=== PATIENT | male | born 1960 | race Caucasian/White ===

== ENCOUNTER 2018-05-22 13:47 | Observation (INO) | payer OTHER ==
[~2018-05-22] VITALS: Ht 188 cm; Wt 99.8 kg
[~2018-05-22 13:47] MED LIST: CEPH500 PO; RXSULTRIDS PO; SULTRIDS PO
[2018-05-22] MEDS ORDERED: Ranitidine HCl150 M1 PO (13:56)
--- NOTE | 2018-05-22 15:39 | NUR ---
1500 PT TO SDS FROM ED, IV ABX INFUSING, C/O ABD PAIN SINCE YESTERDAY. NPO SINCE YESTERDAY. V/U OF SURGICAL INTERVENTION-APPY. RECENTLY MEDICATED FOR PAIN IN ER WITH GOOD PAIN RELIEF. LUNGS CLEAR, SMOKES 1PPD, VSS WITH LOW GRADE TEMP.
--- NOTE | 2018-05-22 16:23 | NUR ---
05/22/18 1622 Scarlett Villeda PATIENT RECEIVED UNASYN 3 GM ANTIBIOTICS PRIOR TO ENTERING OPERATING ROOM. ADMINISTRATION TIME 150
--- NOTE | 2018-05-22 18:05 | NUR ---
PT TRANSFERRED TO UNIT ON BED, A/O, PLEASANT/COOPERATIVE, NO PAIN, NO N/V, PT STATES HE WOULD LIKE TO GO OUTSIDE
--- NOTE | 2018-05-22 18:40 | NUR ---
pt wheeled himself outside to smoke
--- NOTE | 2018-05-22 19:50 | NUR ---
pt returned to room
--- NOTE | 2018-05-22 22:28 | NUR ---
ASSUEMD CARE OF PT. PT A/O, DENIES NEEDS AT THIS TIME. NO SISTRESS NOTED. WILL CONT TO MONITOR.
--- NOTE | 2018-05-23 05:12 | NUR ---
POD 1 S/P LAP APPY. PT VSS T/O NIGHT. DRESSINGS CDI. PAIN MGD W/TYLENOL AND TORIDOL ONLY PER PT REQ. PT BILL REG PO, DENIES N/V. PT IS VOIDING URINE W/O DIFFICULTY. PT AMB INDEP IN ROOM AND OUTSIDE, BILL ACTIVITY WELL. PT USING CALL LIGHT FOR ASSISTANCE, WILL CONT TO MONITOR UNTIL REP GIVEN TO ONCOMING RN.
[2018-05-23] MEDS ORDERED: Tylenol325 MG PO (11:07)
[2018-05-23] MEDS ORDERED: AMOX875 PO (11:08)
--- NOTE | 2018-05-23 12:13 | NUR ---
DISCHARGE SUMMARY PT WALKED OFF FLOOR WITH MOM TO GO HOME WITH ALL PERSONAL POSSESSIONS, DISCHARGE PACKET, 1 RETURN TO WORK SCRIPT AND 1 SCRIPT FOR AUGMENTIN. DISCHARGE INSTRUCTIONS GIVEN. PT REP UNDERSTANDING THOSE INSTRUCTIONS INCLUDING TAKE ABX DIRECTED, 2ND PILL ALICIA, FU WITH SURGEON IN 2 WKS, SPLINT/ROLL TO GET UP, LEAVE STERISTRIPS IN PLACE FOR 7-10 DAYS, TAKE TYLENOL FOR PAIN. IV DC'D.
== END 2018-05-23 11:59 | disposition home or self-care (01) ==
LOC: ER 13:47 → SURS 13:48
PROVIDERS: ADMIT Surgery
PROC: 0DTJ4ZZ Resection of Appendix, Percutaneous Endoscopic Approach (ICD-10-PCS; principal; 2018-05-22 15:15)
DX: K35.33 Acute appendicitis with perforation, localized peritonitis, and gangrene, with abscess (principal); F17.200 Nicotine dependence, unspecified, uncomplicated; Z79.899 Other long term (current) drug therapy; Z88.1 Allergy status to other antibiotic agents
CPT/HCPCS: 88304; 96366; 96374; 96375; 96376; 99285-25; G0378; J0295; J0330; J1100; J1170; J1885; J2250; J2370; J2405; J2710; J3010; J7030; J7120

== ENCOUNTER 2018-06-01 04:32 | Emergency (ER) | payer OTHER ==
[~2018-06-01] VITALS: Ht 185.4 cm; Wt 99.8 kg
[~2018-06-01 04:32] MED LIST changes: +AMOX875 PO; +Ranitidine HCl150 M1 PO; +Tylenol325 MG PO
[2018-06-01 05:23] LABS: BASOPHILS ABSOLUTE AUTO 0.04 K/mm3 (0.00-0.23); BASOPHILS PERCENT AUTO 0 % (0-2); EOSINOPHILS ABSOLUTE AUTO 0.04 K/mm3 (0.00-0.68); EOSINOPHILS PERCENT AUTO 0 % (0-6); Hematocrit 45.2 % (37.0-53.0); Hemoglobin 15.2 g/dL (13.5-17.5); IMMATURE GRAN ABSOLUTE AUTO 0.05 K/mm3 (0.00-0.10); IMMATURE GRAN PERCENT AUTO 0 % (0-1); LYMPHOCYTES ABSOLUTE AUTO 0.27 K/mm3 (0.84-5.20); LYMPHOCYTES PERCENT AUTO 2 % (21-46); MONOCYTES ABSOLUTE AUTO 0.25 K/mm3 (0.16-1.47); MONOCYTES PERCENT AUTO 2 % (4-13); Mean Corpuscular HGB 30.4 pg (26.0-34.0); Mean Corpuscular HGB Conc 33.6 g/dL (31.5-36.5); Mean Corpuscular Volume 90 fL (80-100); Mean Platelet Volume 9.6 fL (9.1-12.4); NEUTROPHILS PERCENT AUTO 95 % (41-73); Platelet Count 310 K/mm3 (150-400); RDW Coefficient Variation 13.5 % (11.7-14.2); RDW Standard Deviation 44.9 fL (35.1-46.3); White Blood Cell Count 12.95 K/mm3 (4.00-11.30)
[2018-06-01 05:43] LABS: Alanine Aminotransfer (ALT/SGP 57 U/L (12-78); Albumin, Blood 3.3 g/dL (3.4-5.0); Albumin/Globulin Ratio 0.9 (0.8-1.8); Alk Phos 92 U/L (50-136); Anion Gap 9 mmol/L (6-16); Aspartate Aminotrans (AST/SGOT 25 U/L (12-37); Bilirubin, Total 0.5 mg/dL (0.1-1.0); Blood Urea Nitrogen 28 mg/dL (8-24); Bun/Creatinine Ratio 25.2 (12.0-20.0); CO2, Blood 22 mmol/L (21-32); Calcium, Blood 7.6 mg/dL (8.5-10.1); Chloride, Blood 111 mmol/L (98-108); Creatinine, Blood 1.11 mg/dL (0.60-1.20); Globulin, Blood 3.7 g/dL (2.2-4.0); Glomerular Filtration Rate >60 (60-); Glucose, Blood 131 mg/dL (70-99); Sodium, Blood 142 mmol/L (136-145); Troponin I <0.015 ng/mL (0.000-0.040)
[2018-06-01 07:31] LABS: Norovirus GI/GII Detected (NOT DETECT)
[2018-06-01 07:32] LABS: Adenovirus F 40/41 Not Detected (NOT DETECT); Astrovirus Not Detected (NOT DETECT); Campylobacter Sp Not Detected (NOT DETECT); Cryptosporidium Not Detected (NOT DETECT); Cyclospora Cayetanensis Not Detected (NOT DETECT); E. Coli O157 Not Detected (NOT DETECT); Entamoeba Histolytica Not Detected (NOT DETECT); Enteroaggregative E. coli-EAEC Not Detected (NOT DETECT); Enteropathogenic E. coli-EPEC Not Detected (NOT DETECT); Enterotoxigenic E. coli-ETEC Not Detected (NOT DETECT); Giardia Lamblia Not Detected (NOT DETECT); Plesiomonas Shigelloides Not Detected (NOT DETECT); Rotavirus A Not Detected (NOT DETECT); Salmonella Sp Not Detected (NOT DETECT); Sapovirus Not Detected (NOT DETECT); Shiga Toxin-prod E. coli-STEC Not Detected (NOT DETECT); Shigella/Enteroin E. coli-EIEC Not Detected (NOT DETECT); Vibrio Cholerae Not Detected (NOT DETECT); Vibrio Sp Not Detected (NOT DETECT); Yersinia Enterocolitica Not Detected (NOT DETECT)
[2018-06-01] MEDS ORDERED: PROM25 PO (09:29)
[2018-06-01] MEDS ORDERED: ONDA4ODT MM (09:29)
== END 2018-06-01 10:48 | disposition home or self-care (01) ==
LOC: ER 04:32
PROVIDERS: Emergency Medicine
DX: K52.9 Noninfective gastroenteritis and colitis, unspecified (principal); F17.210 Nicotine dependence, cigarettes, uncomplicated; Z88.2 Allergy status to sulfonamides; Z88.1 Allergy status to other antibiotic agents; Z90.49 Acquired absence of other specified parts of digestive tract
CPT/HCPCS: 36415; 74176; 80053; 83605; 83690; 84484; 85025; 87040; 87507; 93005; 93010; 96361; 96374; 96375; 99285-25; J2405; J2550; J7030; J7120

== ENCOUNTER 2020-07-17 14:00 | Emergency (ER) | payer OTHER ==
[~2020-07-17] VITALS: Ht 182.9 cm; Wt 108.9 kg
[~2020-07-17 14:00] MED LIST changes: +ONDA4ODT MM; +PROM25 PO
[2020-07-17 14:20] LABS: BASOPHILS ABSOLUTE AUTO 0.04 K/mm3 (0.00-0.23); BASOPHILS PERCENT AUTO 1 % (0-2); EOSINOPHILS ABSOLUTE AUTO 0.12 K/mm3 (0.00-0.68); EOSINOPHILS PERCENT AUTO 2 % (0-6); Hematocrit 41.1 % (37.0-53.0); Hemoglobin 13.9 g/dL (13.5-17.5); IMMATURE GRAN ABSOLUTE AUTO 0.03 K/mm3 (0.00-0.10); IMMATURE GRAN PERCENT AUTO 0 % (0-1); LYMPHOCYTES ABSOLUTE AUTO 1.97 K/mm3 (0.84-5.20); LYMPHOCYTES PERCENT AUTO 24 % (21-46); MONOCYTES ABSOLUTE AUTO 0.78 K/mm3 (0.16-1.47); MONOCYTES PERCENT AUTO 10 % (4-13); Mean Corpuscular HGB Conc 33.8 g/dL (31.5-36.5); Mean Corpuscular Volume 92 fL (80-100); Mean Platelet Volume 10.2 fL (9.1-12.4); NEUTROPHILS ABSOLUTE AUTO 5.13 K/mm3 (1.96-9.15); NEUTROPHILS PERCENT AUTO 64 % (41-73); Platelet Count 279 K/mm3 (150-400); RDW Coefficient Variation 13.9 % (11.7-14.2); RDW Standard Deviation 46.6 fL (35.1-46.3); Red Blood Cell Count 4.49 M/mm3 (4.30-5.90); White Blood Cell Count 8.07 K/mm3 (4.00-11.30)
[2020-07-17 14:43] LABS: Alanine Aminotransfer (ALT/SGP 37 U/L (12-78); Albumin, Blood 3.4 g/dL (3.4-5.0); Alk Phos 96 U/L (50-136); Anion Gap 9 mmol/L (6-16); Aspartate Aminotrans (AST/SGOT 18 U/L (12-37); Bilirubin, Total 0.6 mg/dL (0.1-1.0); Blood Urea Nitrogen 16 mg/dL (8-24); Bun/Creatinine Ratio 13.9 (12.0-20.0); CO2, Blood 22 mmol/L (21-32); Calcium, Blood 8.4 mg/dL (8.5-10.1); Chloride, Blood 109 mmol/L (98-108); Creatinine, Blood 1.15 mg/dL (0.60-1.20); Globulin, Blood 3.3 g/dL (2.2-4.0); Glomerular Filtration Rate >60 (60-); Glucose, Blood 87 mg/dL (70-99); Sodium, Blood 140 mmol/L (136-145); Total Protein, Blood 6.7 g/dL (6.4-8.2); Troponin I <0.015 ng/mL (0.000-0.040)
[2020-07-17] MEDS ORDERED: BUPROPION XL150 M1 PO (15:31)
[2020-07-17] MEDS ORDERED: PARO20 PO (15:33)
== END 2020-07-17 18:23 | disposition home or self-care (01) ==
LOC: ER 14:00
PROVIDERS: Physician Assistant
DX: I47.1 Supraventricular tachycardia (principal); F17.210 Nicotine dependence, cigarettes, uncomplicated; Z88.2 Allergy status to sulfonamides; Z88.1 Allergy status to other antibiotic agents; Z79.899 Other long term (current) drug therapy
CPT/HCPCS: 71046; 80053; 84443; 84484; 85025; 93005; 93010; 93242; 99285-25; J2405